=== PATIENT | male | born 1990 | race Caucasian/White ===

== ENCOUNTER 2020-10-08 20:49 | Emergency (ER) | payer OTHER ==
[2020-10-08 20:59] VITALS: BP 121/65; BMI 35.6
[2020-10-08 22:43] LABS: BASO % 0.9 % (0-2.0); EOS % 0.9 % (0-4.5); HEMATOCRIT 23.5 % (35.4-49); HEMOGLOBIN 7.7 GM/dL (11.7-16.9); MCH 30.6 pg (25.7-33.7); MCHC 32.7 g/dl (32.0-35.9); MEAN CELL VOLUME 93.6 fl (80-96); MEAN PLT VOLUME 9.8 fl (7.5-11.1); MONO % 10.2 % (3.8-10.2); PLATELET COUNT 208 K/MM3 (134-434); RBC 2.51 M/mm3 (4.00-5.60); WHITE BLOOD COUNT 24.3 K/mm3 (4.0-10.0)
[2020-10-08 22:44] LABS: CHLORIDE 99 mmol/L (98-107); SODIUM 130 mmol/L (136-145)
[2020-10-08 22:46] LABS: ANION GAP 11 MMOL/L (8-16); CO2 20 mmol/L (21-32); LIPASE 502 U/L (73-393); MAGNESIUM 2.2 mg/dL (1.8-2.4)
[2020-10-08 22:47] LABS: BLOOD UREA NITROGEN 14.4 mg/dL (7-18); CALCIUM 8.7 mg/dL (8.5-10.1)
[2020-10-08 22:48] LABS: ALBUMIN 2.9 g/dl (3.4-5.0); GLUCOSE,RANDOM 79 mg/dL (74-106)
[2020-10-08 22:50] LABS: SGOT/AST 162 U/L (15-37); SGPT/ALT 78 U/L (13-61)
[2020-10-08 22:51] LABS: PROTHROMBIN TIME (PATIENT) 49.9 SEC (9.7-13.0)
[2020-10-08 22:52] LABS: PHOSPHOROUS 3.1 mg/dL (2.5-4.9)
[2020-10-08 22:53] LABS: ACTIVATED PTT 40.9 SECONDS (25.2-36.5); ALK PHOS 118 U/L (45-117)
[2020-10-08 23:08] LABS: INR 4.3 (0.83-1.09)
[2020-10-08 23:19] LABS: BILIRUBIN,DIRECT 20.6 mg/dL (0.0-0.2); BILIRUBIN,TOTAL 27.8 mg/dL (0.2-1); TOT PROT 5.3 g/dl (6.4-8.2)
[2020-10-09 02:10] LABS: ANISOCYTOSIS 2+; MACROCYTOSIS 1+; PLATELET ESTIMATE NORMAL
[2020-10-09 03:53] VITALS: PULSE 97; TEMP 99
== END 2020-10-09 03:55 | disposition short-term general hospital (02) ==
LOC: JER 20:49
DX: R17 Unspecified jaundice (principal)
CPT/HCPCS: 36415; 80053; 80074; 80307; 82140; 82248; 83690; 83735; 84100; 85025; 85610; 85730; 93005; 93010; 99285-25; C9803; U0003; U0005